=== PATIENT | female | born 1985 | race African-American/Black ===

== ENCOUNTER 2018-07-22 04:15 | Inpatient (IN) ==
[2018-07-22] MEDS ORDERED: ONDANSETRON 4 MG/2 ML VIAL IV STA (04:28)
[2018-07-22] MEDS ORDERED: SODIUM CHLORIDE 0.9% 1,000 ML IV STA ×3 (04:28→08:01)
[2018-07-22] MEDS ORDERED: KETOROLAC 30 MG/1 ML VIAL IV STA (04:29)
[2018-07-22] MEDS ORDERED: HYDROmorphone 2 MG/1 ML VIAL IV STA (05:28)
[2018-07-22 06:20] LABS: Basophils % 0.2 % (0.0-0.8); Hematocrit 43.6 VOL% (35.7-47.0); Hemoglobin 14.2 GM/DL (12.0-16.0); Immature Granulocytes % 0.6 %; Immature Granulocytes Absolute 0.08 #; Lymphocytes # 0.9 10*3/uL (1.4-4.0); Lymphocytes % 6.9 % (21.3-54.2); Mean Corpuscular HGB Conc 32.6 GM/DL (32-36); Mean Corpuscular Hemoglobin 30 PG (27-34); Mean Corpuscular Volume 91.4 FL (87-102); Monocytes # 0.4 10*3/uL (0.11-0.8); Monocytes % 3.2 % (1.7-12.7); Neutrophils # 11.6 10*3/uL (1.4-7.4); Neutrophils % 89.1 % (38.7-73.9); Platelet Count 298 T/CUMM (130-400); Red Blood Count 4.77 MC/CUMM (3.8-5.5)
[2018-07-22] MEDS ORDERED: PIPERACILLIN/TAZOBACTAM 3,375 MG in SODIUM CHLORIDE 0.9% 100 ML IV STA ×2 (06:27→06:31)
[2018-07-22 06:32] LABS: Apearance,Urine CLOUDY (Clear); Bacteria,Urine Moderate /HPF (Few); Bilirubin,Urine Negative (Negative); Blood, Urine Moderate mg/dL (Negative); Glucose,Urine (UA) Negative (Negative); Hyaline Casts,Urine 7 /LPF (0-3); Ketones,Urine Negative (Negative); Mucus,Urine Few /LPF (Occasional); Nitrite,Urine Negative (Negative); Protein,Urine 30 MG/DL; RBC,Urine 9 /HPF (0-4); Squamous Epithelial Cell,Urine Occasional /HPF (0-10); Urine Color Amber (Yellow); Urine Specific Gravity 1.025 (1.001-1.035); WBC,Urine 37 /HPF (0-6)
[2018-07-22 06:33] LABS: Albumin 3.8 G/DL (3.4-5.0); Calcium 9.3 MG/DL (8.5-10.1); Osmolality,Calculated 268.1 MOS/KG (273-304); Potassium 3.3 MMOL/L (3.5-5.1); Total Protein 8.9 G/DL (6.4-8.3)
[2018-07-22 06:46] LABS: Platelet Estimate Normal
[2018-07-22] MEDS ORDERED: NOREPINEPHRINE 8 MG in SODIUM CHLORIDE 0.9% 242 ML IV PRN (07:33)
[2018-07-22] MEDS ORDERED: ZALEPLON 5 MG CAPSULE PO PRN (08:51)
[2018-07-22] MEDS ORDERED: ALBUTEROL 2.5 MG/3 ML NEB RESP TX PRN (08:51)
[2018-07-22] MEDS ORDERED: ACETAMINOPHEN 325 MG TABLET PO PRN (08:51)
[2018-07-22] MEDS: LACTATED RINGERS 1,000 ML IV SCH ×3 (09:18→18:09)
[2018-07-22] MEDS ORDERED: MORPHINE 4 MG/1 ML VIAL IV STA (09:29)
[2018-07-22] MEDS ORDERED: LACTATED RINGERS 1,000 ML IV ONE (09:29)
[2018-07-22] MEDS ORDERED: DICYCLOMINE 20 MG TABLET PO STA (09:33)
[2018-07-22] MEDS: LEVOFLOXACIN INJ 750 MG in PREMIX 1 EACH IV SCH (09:40)
[2018-07-22] MEDS ORDERED: NOREPINEPHRINE 4 MG/4 ML VIAL IV ONE (10:09)
[2018-07-22] MEDS: ENOXAPARIN 40 MG/0.4 ML SYRINGE SUBCUT SCH (10:20)
[2018-07-22] MEDS: ONDANSETRON 4 MG/2 ML VIAL IV PRN ×2 (10:23→23:57)
[2018-07-22] MEDS: FAMOTIDINE 20 MG TABLET PO SCH ×2 (10:46→20:53)
[2018-07-22] MEDS: MORPHINE 4 MG/1 ML VIAL IV PRN ×2 (17:54→23:59)
[2018-07-22] MEDS: DICYCLOMINE 10 MG CAPSULE PO SCH (20:53)
[2018-07-23] MEDS: LACTATED RINGERS 1,000 ML IV SCH ×3 (01:21→17:54)
[2018-07-23 04:12] LABS: Basophils # 0.1 10*3/uL (0.0-0.2); Basophils % 0.2 % (0.0-0.8); Eosinophils # 0.1 10*3/uL (0.0-0.87); Eosinophils % 0.2 % (0.00-10.9); Hematocrit 30.2 VOL% (35.7-47.0); Hemoglobin 10.1 GM/DL (12.0-16.0); Immature Granulocytes % 1.7 %; Immature Granulocytes Absolute 0.45 #; Lymphocytes # 2.1 10*3/uL (1.4-4.0); Lymphocytes % 7.9 % (21.3-54.2); Mean Corpuscular HGB Conc 33.4 GM/DL (32-36); Mean Corpuscular Hemoglobin 31 PG (27-34); Mean Corpuscular Volume 91.2 FL (87-102); Mean Platelet Volume 10.3 FL (9.6-12.0); Monocytes # 1.1 10*3/uL (0.11-0.8); Monocytes % 4.2 % (1.7-12.7); Neutrophils # 22.9 10*3/uL (1.4-7.4); Neutrophils % 85.8 % (38.7-73.9); Platelet Count 233 T/CUMM (130-400); Red Blood Count 3.31 MC/CUMM (3.8-5.5); Red Cell Distribution Width 12.9 % (9.3-17.3); White Blood Count 26.7 T/CUMM (4-12)
[2018-07-23 04:17] LABS: Albumin 2.1 G/DL (3.4-5.0); Bilirubin,Total 0.7 MG/DL (0.2-1.0); Calcium 7.4 MG/DL (8.5-10.1); Osmolality,Calculated 272.7 MOS/KG (273-304); Potassium 3.4 MMOL/L (3.5-5.1); Total Protein 5.7 G/DL (6.4-8.3)
[2018-07-23] MEDS ORDERED: MAGNESIUM SULF RIDER 2 GM in PREMIX 1 EACH IV ONE ×2 (04:41→07:57)
[2018-07-23 06:06] LABS: Band Neutrophils 9 % (0-10); Lymphocytes 5 % (20-55); Metamyelocytes 2 %; Segmented Neutrophils 80 % (50-85); Total Cells Counted 100
[2018-07-23 06:07] LABS: Hypochromasia 1+; Platelet Estimate Normal
[2018-07-23] MEDS ORDERED: MAGNESIUM SULF RIDER 2 GM in PREMIX 1 EACH IV PRN (07:57)
[2018-07-23] MEDS ORDERED: MAGNESIUM SULF RIDER 4 GM in PREMIX 1 EACH IV PRN (07:57)
[2018-07-23] MEDS: DICYCLOMINE 10 MG CAPSULE PO SCH ×2 (09:13→21:21)
[2018-07-23] MEDS: POTASSIUM CHLORIDE 20 MEQ TABLET PO PRN (09:13)
[2018-07-23] MEDS: FAMOTIDINE 20 MG TABLET PO SCH ×2 (09:14→21:20)
[2018-07-23] MEDS: ENOXAPARIN 40 MG/0.4 ML SYRINGE SUBCUT SCH (09:15)
[2018-07-23] MEDS: LEVOFLOXACIN INJ 750 MG in PREMIX 1 EACH IV SCH (09:22)
[2018-07-23] MEDS: MORPHINE 4 MG/1 ML VIAL IV PRN ×3 (09:30→21:21)
[2018-07-23] MEDS: metroNIDAZOLE 500 MG TABLET PO SCH ×2 (14:42→21:20)
[2018-07-23] MEDS: cefTRIAXone 2,000 MG in SYRINGE 1 EACH IV SCH (17:54)
[2018-07-24] MEDS: MORPHINE 4 MG/1 ML VIAL IV PRN ×4 (01:47→20:15)
[2018-07-24] MEDS: LACTATED RINGERS 1,000 ML IV SCH ×2 (01:51→12:35)
[2018-07-24 05:14] LABS: Basophils % 0.2 % (0.0-0.8); Eosinophils # 0.1 10*3/uL (0.0-0.87); Eosinophils % 0.6 % (0.00-10.9); Hematocrit 27.7 VOL% (35.7-47.0); Hemoglobin 9.3 GM/DL (12.0-16.0); Immature Granulocytes Absolute 0.19 #; Lymphocytes # 1.6 10*3/uL (1.4-4.0); Lymphocytes % 8.4 % (21.3-54.2); Mean Corpuscular HGB Conc 33.6 GM/DL (32-36); Mean Corpuscular Hemoglobin 30 PG (27-34); Mean Corpuscular Volume 90.2 FL (87-102); Mean Platelet Volume 10.7 FL (9.6-12.0); Monocytes # 0.7 10*3/uL (0.11-0.8); Monocytes % 3.5 % (1.7-12.7); Neutrophils # 16.2 10*3/uL (1.4-7.4); Neutrophils % 86.3 % (38.7-73.9); Platelet Count 190 T/CUMM (130-400); Red Blood Count 3.07 MC/CUMM (3.8-5.5); Red Cell Distribution Width 13.1 % (9.3-17.3); White Blood Count 18.8 T/CUMM (4-12)
[2018-07-24 05:34] LABS: Alanine Aminotransferase < 9 U/L (13-56); Albumin 1.7 G/DL (3.4-5.0); Alkaline Phosphatase 116 U/L (45-117); Aspartate Amino Transferase 14 U/L (0-37); Blood Urea Nitrogen 6 MG/DL (7-18); Calcium 7.7 MG/DL (8.5-10.1); Glucose 80 MG/DL (74-106); Osmolality,Calculated 271.7 MOS/KG (273-304); Potassium 3.3 MMOL/L (3.5-5.1); Sodium 138 MMOL/L (136-145); Total Protein 5.3 G/DL (6.4-8.3)
[2018-07-24] MEDS: metroNIDAZOLE 500 MG TABLET PO SCH ×3 (05:47→22:16)
[2018-07-24] MEDS: LEVOFLOXACIN INJ 750 MG in PREMIX 1 EACH IV SCH (08:00)
[2018-07-24] MEDS: DICYCLOMINE 10 MG CAPSULE PO SCH ×2 (08:01→22:16)
[2018-07-24] MEDS: FAMOTIDINE 20 MG TABLET PO SCH ×3 (08:02→22:16)
[2018-07-24 09:11] LABS: Hypochromasia 2+; Ovalocytes Few; Platelet Estimate Adequate; Polychromasia Few; Target Cells Few
[2018-07-24] MEDS: cefTRIAXone 2,000 MG in SYRINGE 1 EACH IV SCH (09:23)
[2018-07-24] MEDS: POTASSIUM CHLORIDE 20 MEQ TABLET PO PRN ×4 (13:55→22:16)
[2018-07-24] MEDS: ENOXAPARIN 40 MG/0.4 ML SYRINGE SUBCUT SCH (13:55)
[2018-07-25 05:59] LABS: Basophils % 0.2 % (0.0-0.8); Eosinophils # 0.1 10*3/uL (0.0-0.87); Eosinophils % 0.6 % (0.00-10.9); Hematocrit 27.6 VOL% (35.7-47.0); Hemoglobin 9.2 GM/DL (12.0-16.0); Immature Granulocytes % 0.5 %; Immature Granulocytes Absolute 0.09 #; Lymphocytes # 1.6 10*3/uL (1.4-4.0); Lymphocytes % 9.4 % (21.3-54.2); Mean Corpuscular HGB Conc 33.3 GM/DL (32-36); Mean Corpuscular Hemoglobin 30 PG (27-34); Mean Corpuscular Volume 89.9 FL (87-102); Mean Platelet Volume 10.4 FL (9.6-12.0); Monocytes # 1.2 10*3/uL (0.11-0.8); Monocytes % 7.4 % (1.7-12.7); Neutrophils # 13.7 10*3/uL (1.4-7.4); Neutrophils % 81.9 % (38.7-73.9); Platelet Count 231 T/CUMM (130-400); Red Blood Count 3.07 MC/CUMM (3.8-5.5); Red Cell Distribution Width 13.3 % (9.3-17.3); White Blood Count 16.7 T/CUMM (4-12)
[2018-07-25 06:07] LABS: Alanine Aminotransferase < 9 U/L (13-56); Albumin 1.8 G/DL (3.4-5.0); Alkaline Phosphatase 129 U/L (45-117); Aspartate Amino Transferase 10 U/L (0-37); Blood Urea Nitrogen 5 MG/DL (7-18); Calcium 7.9 MG/DL (8.5-10.1); Glucose 80 MG/DL (74-106); Osmolality,Calculated 274.4 MOS/KG (273-304); Potassium 3.5 MMOL/L (3.5-5.1); Sodium 140 MMOL/L (136-145); Total Protein 5.6 G/DL (6.4-8.3)
[2018-07-25] MEDS: metroNIDAZOLE 500 MG TABLET PO SCH ×3 (06:25→21:35)
[2018-07-25 06:32] LABS: Band Neutrophils 1 % (0-10); Eosinophils 1 % (0-10); Lymphocytes 12 % (20-55); Platelet Estimate Normal; Polychromasia Few; Segmented Neutrophils 83 % (50-85); Total Cells Counted 100
[2018-07-25] MEDS: FAMOTIDINE 20 MG TABLET PO SCH ×2 (08:47→20:42)
[2018-07-25] MEDS: DICYCLOMINE 10 MG CAPSULE PO SCH ×2 (08:48→20:42)
[2018-07-25] MEDS: MORPHINE 4 MG/1 ML VIAL IV PRN ×2 (08:48→23:20)
[2018-07-25] MEDS: LEVOFLOXACIN INJ 750 MG in PREMIX 1 EACH IV SCH (08:48)
[2018-07-25] MEDS: cefTRIAXone 2,000 MG in SYRINGE 1 EACH IV SCH (08:48)
[2018-07-25] MEDS: ONDANSETRON 4 MG/2 ML VIAL IV PRN (08:57)
[2018-07-25] MEDS: ENOXAPARIN 40 MG/0.4 ML SYRINGE SUBCUT SCH (08:59)
[2018-07-25] MEDS: PROMETHAZINE 25 MG TABLET PO PRN (20:42)
[2018-07-26 04:29] LABS: Basophils % 0.1 % (0.0-0.8); Eosinophils # 0.1 10*3/uL (0.0-0.87); Eosinophils % 0.9 % (0.00-10.9); Hematocrit 27.7 VOL% (35.7-47.0); Hemoglobin 8.8 GM/DL (12.0-16.0); Immature Granulocytes % 1.4 %; Immature Granulocytes Absolute 0.15 #; Lymphocytes # 2.1 10*3/uL (1.4-4.0); Lymphocytes % 20.5 % (21.3-54.2); Mean Corpuscular HGB Conc 31.8 GM/DL (32-36); Mean Corpuscular Hemoglobin 29 PG (27-34); Mean Corpuscular Volume 91.1 FL (87-102); Mean Platelet Volume 10.1 FL (9.6-12.0); Monocytes # 1.2 10*3/uL (0.11-0.8); Monocytes % 11.7 % (1.7-12.7); Neutrophils # 6.8 10*3/uL (1.4-7.4); Neutrophils % 65.4 % (38.7-73.9); Platelet Count 242 T/CUMM (130-400); Red Blood Count 3.04 MC/CUMM (3.8-5.5); Red Cell Distribution Width 13.5 % (9.3-17.3); White Blood Count 10.4 T/CUMM (4-12)
[2018-07-26 04:47] LABS: Calcium 7.4 MG/DL (8.5-10.1); Osmolality,Calculated 266.1 MOS/KG (273-304); Potassium 3.4 MMOL/L (3.5-5.1)
[2018-07-26] MEDS: metroNIDAZOLE 500 MG TABLET PO SCH ×3 (05:05→21:03)
[2018-07-26] MEDS: PROMETHAZINE 25 MG TABLET PO PRN ×2 (05:05→20:01)
[2018-07-26] MEDS: POTASSIUM CHLORIDE 20 MEQ TABLET PO PRN ×3 (05:05→09:15)
[2018-07-26] MEDS: DICYCLOMINE 10 MG CAPSULE PO SCH ×2 (09:15→20:01)
[2018-07-26] MEDS: ENOXAPARIN 40 MG/0.4 ML SYRINGE SUBCUT SCH (09:15)
[2018-07-26] MEDS: LEVOFLOXACIN INJ 750 MG in PREMIX 1 EACH IV SCH (09:15)
[2018-07-26] MEDS: FAMOTIDINE 20 MG TABLET PO SCH ×2 (09:15→20:01)
[2018-07-26] MEDS: cefTRIAXone 2,000 MG in SYRINGE 1 EACH IV SCH (09:15)
[2018-07-26] MEDS: MORPHINE 4 MG/1 ML VIAL IV PRN ×2 (11:26→21:03)
[2018-07-26] MEDS: ONDANSETRON 4 MG/2 ML VIAL IV PRN ×2 (11:26→21:03)
[2018-07-27] MEDS: MORPHINE 4 MG/1 ML VIAL IV PRN ×3 (00:33→09:15)
[2018-07-27] MEDS: ONDANSETRON 4 MG/2 ML VIAL IV PRN ×2 (04:31→10:08)
[2018-07-27] MEDS: metroNIDAZOLE 500 MG TABLET PO SCH (05:39)
[2018-07-27 07:50] LABS: Calcium 7.7 MG/DL (8.5-10.1); Osmolality,Calculated 272.5 MOS/KG (273-304); Potassium 3.4 MMOL/L (3.5-5.1)
[2018-07-27 08:11] LABS: Basophils % 0.3 % (0.0-0.8); Eosinophils # 0.1 10*3/uL (0.0-0.87); Eosinophils % 0.9 % (0.00-10.9); Hematocrit 28.1 VOL% (35.7-47.0); Hemoglobin 9.3 GM/DL (12.0-16.0); Immature Granulocytes % 3.8 %; Immature Granulocytes Absolute 0.37 #; Lymphocytes # 2.2 10*3/uL (1.4-4.0); Lymphocytes % 22.7 % (21.3-54.2); Mean Corpuscular HGB Conc 33.1 GM/DL (32-36); Mean Corpuscular Hemoglobin 30 PG (27-34); Mean Corpuscular Volume 90.4 FL (87-102); Mean Platelet Volume 10.4 FL (9.6-12.0); Monocytes # 1.6 10*3/uL (0.11-0.8); Neutrophils # 5.6 10*3/uL (1.4-7.4); Neutrophils % 56.3 % (38.7-73.9); Platelet Count 281 T/CUMM (130-400); Red Blood Count 3.11 MC/CUMM (3.8-5.5); Red Cell Distribution Width 13.8 % (9.3-17.3); White Blood Count 9.8 T/CUMM (4-12)
[2018-07-27] MEDS ORDERED: POTASSIUM CHLORIDE 20 MEQ TABLET PO ONE (08:34)
[2018-07-27] MEDS ORDERED: MAGNESIUM SULF RIDER 2 GM in PREMIX 1 EACH IV ONE (08:35)
[2018-07-27 08:42] LABS: Atypical Lymphocytes Few; Hypochromasia Slight; Lymphocytes 23 % (20-55); Microcytosis Slight; Myelocytes 2 %; Nucleated Red Blood Cells 1 (0-5); Segmented Neutrophils 64 % (50-85); Total Cells Counted 100
[2018-07-27 08:43] LABS: Platelet Estimate Normal
[2018-07-27] MEDS: DICYCLOMINE 10 MG CAPSULE PO SCH (09:10)
[2018-07-27] MEDS: FAMOTIDINE 20 MG TABLET PO SCH (09:10)
[2018-07-27] MEDS: ENOXAPARIN 40 MG/0.4 ML SYRINGE SUBCUT SCH (09:12)
[2018-07-27] MEDS: cefTRIAXone 2,000 MG in SYRINGE 1 EACH IV SCH (09:13)
[2018-07-27] MEDS: LEVOFLOXACIN INJ 750 MG in PREMIX 1 EACH IV SCH (09:18)
[2018-07-27 11:18] VITALS: BP 112/64
== END 2018-07-27 12:52 | disposition home or self-care (01) | DRG 392 ==
LOC: N.ED 04:15 → SUATTDRO 08:51 → N.EDINP 08:51 → N.ICU 10:39 → N.3E 07-26 08:13
PROVIDERS: ADMIT Family Medicine; ATTEND Internal Medicine